=== PATIENT | female | born 1965 | race African-American/Black ===

== ENCOUNTER 2018-09-08 23:55 | Emergency (ER) | payer OTHER ==
[~2018-09-08] VITALS: Ht 177.8 cm; Wt 86.2 kg
[2018-09-09] MEDS ORDERED: LOPRESSOR25 PO (00:26)
[2018-09-09 02:30] VITALS: BP 157/71
--- NOTE | 2018-09-09 16:59 | EKG ---
[address] [place] [address] ELECTROCARDIOGRAM REPORT Name: JOHN PAREDES Room #: DEP [facility]#: [id number] ������������������ Admission: 09/08/18 ������������������ Attend Phys: Discharge: 09/09/18 ������������������ Date of : 63 Report #: [id number] ����������������������������������������������������������������� [id number] THIS REPORT FOR: //name// [facility] ED Test Date: 2018-09-09 Test Time: 00:36:19 Pat Name: JOHN PAREDES Department: Room: Gender: F [employer]: PK : 1965 Requested By: Jojo Covington Order Number: [id number] MD: Desmond Stanford Measurements Intervals [place] Rate: 70 P: 61 MO: 192 QRS: 17 QRSD: 98 T: -63 QT: 402 QTc: 434 Interpretive Statements Sinus rhythm Probable left atrial enlargement Abnormal T, consider ischemia, lateral leads Baseline wander in lead(s) I,III,aVL,V3 No previous ECG available for comparison Electronically Signed On 09-09-2018 16:58:53 CDT by Desmond Stanford [email or web address] ��������������������������������������������� <ELECTRONICALLY SIGNED> ���������������������������������������� By: Desmond Stanford MD ��������������������������������������������� 09/09/18 [id number] Desmond Stanford MD /EPI
== END 2018-09-09 02:37 | disposition home or self-care (01) ==
LOC: ER 23:55
DX: R42 Dizziness and giddiness (principal); I10 Essential (primary) hypertension